=== PATIENT | female | born 1985 | race Caucasian/White ===

== ENCOUNTER 2020-09-21 17:50 | Emergency (ER) | payer BC ==
[2020-09-21] MEDS ORDERED: Sulfamethoxazole/Trimethoprim 800-160 MG Tab PO ONE (18:36)
--- NOTE | 2020-09-21 18:45 | EDM.PDOC ---
ED HPI GENERAL MEDICAL PROBLEM - General Chief Complaint: Skin Complaint Stated Complaint: POSSIBLE INFECTION ON FINGER Time Seen by Provider: 09/21/20 18:20 - History of Present Illness INITIAL COMMENTS - FREE TEXT/NARRATIVE: CHIEF COMPLAINT(S): Finger infection HISTORY OF PRESENT ILLNESS: This is a 34-year-old woman without any significant past medical history who comes to the emergency department with a chief complaint of finger infection. The patient states that over the last week her left ring finger at that tip near her nail started to have some pain and then over the week it started to turn red and she developed some pus drainage on the medial aspect of the right nail. She states that she comes to the emergency department because her made her. She denies any fevers, chills, decreased range of motion, numbness or tingling. She states that she has never had this before. She denies any injury to this finger. REVIEW OF SYSTEMS: Constitutional: Denies fever, chills. Eyes: Denies eye pain Ears, Nose, Mouth, & Throat: Denies earache Cardiovascular: Denies chest pain Respiratory: Denies shortness of breath Gastrointestinal: Denies Nausea, vomiting, diarrhea, hematochezia. Genitourinary: Denies hematuria Skin: Positive for left ring finger redness, swelling, pus drainage MSK: Denies joint pain, decreased range of motion Neurological: Denies blurred vision, numbness, tingling, weakness Psychiatric: Denies depression PAST MEDICAL HISTORY: As per history of present illness and as reviewed below otherwise noncontributory. SURGICAL HISTORY: As per history of present illness and as reviewed below otherwise noncontributory. SOCIAL HISTORY: As per history of present illness and as reviewed below otherwise noncontributory. FAMILY HISTORY: As per history of present illness and as reviewed below otherwise noncontributory. EXAMINATION OF ORGAN SYSTEMS/BODY AREAS: Constitutional: Blood pressure was 118/72, heart rate 84, respiratory rate 18 with an oxygen saturation 98% on room air. Temperature 37.3 General: Overall well-appearing woman who is in no acute distress Psychiatric: Appropriate mood and affect. Eyes: No scleral icterus or conjunctival erythema Cardiovascular: Regular, rate, and rhythm. No gallops, murmurs, or rubs. Bilateral upper extremity pulses symmetric and intact. No peripheral edema. No JVD. Respiratory: Lungs clear to auscultation bilaterally. No wheezes, rales, or rhonchi. Musculoskeletal: The patient has full range of motion of her digits on her left hand. There was no swelling of any of the digits. Skin: The patient's left ring finger on the lateral aspect of the nail there was some erythema, swelling and what appears to be a paronychia. No tenderness at the distal tip of the finger patient can fully flex and extend his finger. Neurological: Alert, GCS 15 distal sensation is intact MEDICAL DECISION MAKING AND COURSE IN THE ED WITH INTERPRETATION/REVIEW OF DIAGNOSTIC STUDIES: This is a 34-year-old woman without any significant past medical history who comes to the emergency department with what appears to be a left ring finger paronychia. I do not believe any labs or imaging are indicated. We will perform incision and drainage. We will provide the patient with Bactrim for antibiotic treatment. Incision and drainage was performed by myself. The area was prepped with povidone. An incision was made with an 11 blade parallel to the nail. Purulent material was removed. A dressing was placed. After incision and drainage the patient reported improvement in her pain. At this time I did discuss with her treatment at home and to complete a course of antibiotics. She is to return for any new or worsening symptoms. She was amenable discharge and had no further questions DISPOSITION: The patient was discharged home in stable condition. The patient will follow up with primary care physician in 3 to 5 days CONDITION: Fair PROCEDURES: Paronychia incision and drainage FINAL IMPRESSION(S)/DIAGNOSES: 1. Acute left ring finger paronychia status post incision and drainage Boubacar Gleason M.D. 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 Pain Score (Numeric/FACES): 2 - Related Data Allergies Allergy/AdvReac Type Severity Reaction Status Date / Time latex Allergy Hives Verified 09/21/20 18:05 Home Meds: Home Meds Multivitamin [Multi-Vitamin Daily] 1 each PO DAILY 04/17/15 [History] Sulfamethoxazole/Trimethoprim [Bactrim Ds Tablet] 1 each PO BID #9 tablet 09/21/20 [Rx] Past Medical History - Past Health History Medical/Surgical History: Denies Medical/Surgical History HEENT History: Reports: None Cardiovascular History: Reports: None Respiratory History: Reports: None Gastrointestinal History: Reports: None Genitourinary History: Reports: None CRISIS CLINICIAN History: Reports: None Musculoskeletal History: Reports: None Neurological History: Reports: None Psychiatric History: Reports: Anxiety Endocrine/Metabolic History: Reports: None Hematologic History: Reports: None Immunologic History: Reports: None Oncologic (Cancer) History: Reports: None Dermatologic History: Reports: None - Infectious Disease History Infectious Disease History: Reports: None - Past Surgical History Head Surgeries/Procedures: Reports: None Female Surgical History: Reports: Section Social & Family History - Family History Family Medical History: No Pertinent Family History - Tobacco Use Tobacco Use Status *Q: Never Tobacco User Second Hand Smoke Exposure: No - Caffeine Use Caffeine Use: Reports: None - Recreational Drug Use Recreational Drug Use: No ED ROS GENERAL - Review of Systems Review Of Systems: See Below ED EXAM, SKIN/RASH Exam: See Below Course - Vital Signs Last Recorded V/S: Last Vital Signs Temp 36.7 C 09/21/20 18:58 Pulse 78 09/21/20 18:58 Resp 20 09/21/20 18:58 BP 109/76 09/21/20 18:58 Pulse Ox 98 09/21/20 18:58 - Orders/Labs/Meds Meds: Medications Discontinued Medications Generic Name Dose Route Start Last Admin Trade Name Freq PRN Reason Stop Dose Admin Trimethoprim/Sulfamethoxazole 1 tab 09/21/20 18:36 09/21/20 18:58 Sulfamethoxazole/Trimethoprim 800-160 Mg Tab PO 09/21/20 18:37 1 tab ONETIME ONE Administration Departure - Departure Time of Disposition: 18:45 Disposition: Home, Self-Care 01 Condition: Fair Clinical Impression: Paronychia - Discharge Information *PRESCRIPTION DRUG MONITORING PROGRAM REVIEWED*: No *COPY OF PRESCRIPTION DRUG MONITORING REPORT IN PATIENT REEMA: No Prescriptions: Sulfamethoxazole/Trimethoprim [Bactrim Ds Tablet] 1 each PO BID #9 tablet Instructions: Paronychia, [id number] Referrals: PCP,None [Primary Care Provider] - Forms: ED Department Discharge Additional Instructions: You were evaluated today on an emergent basis. At this time you did have evidence of what is called a paronychia. This is an infection on the side of your nail bed. We did perform a drainage of this. Is important to keep this area clean. You may use [id number] Neosporin however we will provide you with Bactrim and is to be taken twice a day for the next 5 days. If you have any worsening of your symptoms please return to the emergency department. This includes redness, increased swelling, inability to move your finger. Please follow-up with your primary care physician within 3 to 5 days for reevaluation. [facility] [address] [place] [address] [facility] [address] [place] [id number] The patient is informed of any results of their evaluation and diagnostic workup and all questions are answered. They are given discharge instructions and return precautions. The patient is stable for discharge. The patient states they understand and agree with the plan and that they will return if their symptoms get worse or if they have any new concerns. The following information is given to patients seen in the emergency department who are being discharged to home. This information is to outline your options for follow-up care. We provide all patients seen in our emergency department with a follow-up referral. The need for follow-up, as well as the timing and circumstances, are variable depending upon the specifics of your emergency department visit. If you don't have a primary care physician on staff, we will provide you with a referral. We always advise you to contact your personal physician following an emergency department visit to inform them of the circumstance of the visit and for follow-up with them and/or the need for any referrals to a consulting specialist. The emergency department will also refer you to a specialist when appropriate. This referral assures that you have the opportunity for follow-up care with a specialist. All of these measure are taken in an effort to provide you with optimal care, which includes your follow-up. Under all circumstances we always encourage you to contact your private physician who remains a resource for coordinating your care. When calling for follow-up care, please make the office aware that this follow-up is from your recent emergency room visit. If for any reason you are refused follow-up, please contact the [facility] Emergency Department at and asked to speak to the emergency department charge nurse. Sepsis Event Note (ED) - Evaluation Sepsis Screening Result: No Definite Risk
[2020-09-21 19:00] VITALS: BP 109/76; PULSE 78
== END 2020-09-21 19:05 | disposition home or self-care (01) ==
LOC: MW.ED 17:50
DX: L03.012 Cellulitis of left finger (principal); Z91.040 Latex allergy status
CPT/HCPCS: 10060; 99282; A9270

== ENCOUNTER 2023-12-11 08:16 | Emergency (ER) | payer BC ==
[2023-12-11 08:33] VITALS: BP 114/75; PULSE 83
[2023-12-11] MEDS: Bacitracin Oint 1 GM U/D Packet TOP ONE (09:11)
[2023-12-11] MEDS: Diphtheria,Pertussis(Acell),Tetanus Vaccine 0.5 ML Syringe IM ONE (09:11)
== END 2023-12-11 09:21 | disposition home or self-care (01) ==
LOC: MW.ED 08:16
DX: T21.22XA Burn of second degree of abdominal wall, initial encounter (principal); Z23 Encounter for immunization; Z75.8 Other problems related to medical facilities and other health care; Z91.040 Latex allergy status; X12.XXXA Contact with other hot fluids, initial encounter
CPT/HCPCS: 90471; 90715; 99283; 99283-25